=== PATIENT | male | born 1985 | race Two or more races ===

== ENCOUNTER 2024-01-11 12:56 | Inpatient (IN) | payer MEDICAID ==
[~2024-01-11] VITALS: Ht 175.3 cm; Wt 72.3 kg
[2024-01-11] MEDS: CefTRIAXone 2gm/D5W 50ml BAG 50 ML IV ONE (14:52)
[2024-01-11] MEDS: normal saline 1000ML IV soln IV ONE (14:53)
[2024-01-11] MEDS: normal saline 1000ML IV soln IVB ONE (15:03)
[2024-01-11] MEDS: vancomycin/NS 1 GM ADD-VANTAGE 250 ML IV ONE (15:03)
[2024-01-11] MEDS: HYDROmorphone 1 mg/ml syringe IV ONE (15:15)
[2024-01-11 15:18] LABS: BASOPHILS # (AUTO) 0.1 X10'3 (0-0.2); BASOPHILS % (AUTO) 0.4 % (0-1); EOSINOPHILS # (AUTO) 0.4 X10'3 (0-0.9); EOSINOPHILS % (AUTO) 2.7 % (0-6); HEMATOCRIT 40.8 % (42.0-52.0); HEMOGLOBIN 13.7 g/dl (14.0-17.9); LYMPHOCYTES # (AUTO) 0.2 X10'3 (1.1-4.8); LYMPHOCYTES % (AUTO) 1.6 % (21-51); MEAN CORPUSCULAR HEMOGLOBIN 28.2 PG (27.0-31.0); MEAN CORPUSCULAR HGB CONC 33.6 g/dL (33.0-36.5); MEAN CORPUSCULAR VOLUME 83.8 FL (78-98); MEAN PLATELET VOLUME 10.6 FL (7.4-10.4); MONOCYTES # (AUTO) 0.4 X10'3 (0-0.9); MONOCYTES % (AUTO) 3.2 % (2-12); NEUTROPHILS # (AUTO) 12.3 X10'3 (1.8-7.7); NEUTROPHILS % (AUTO) 92.1 % (42-75); PLATELET COUNT 112 X10'3 (140-440); RED BLOOD COUNT 4.86 X10'6 (4.70-6.10); WHITE BLOOD COUNT 13.4 X10'3 (4.5-11.0)
[2024-01-11 15:20] LABS: ALBUMIN 1.8 G/DL (3.4-5.0); ANION GAP 11 (8-16); BLOOD UREA NITROGEN 38 MG/DL (7-18); BUN/CREATININE RATIO 31.1 (10.0-20.0); CALCIUM 8.1 MG/DL (8.5-10.1); CHLORIDE 98 MMOL/L (99-107); CREATININE 1.22 MG/DL (0.60-1.10); GLUCOSE 358 MG/DL (70-104); MAGNESIUM 1.6 MG/DL (1.5-2.4); POTASSIUM 4.6 MMOL/L (3.5-5.1); SODIUM 130 MMOL/L (135-145); TOTAL CARBON DIOXIDE 20.8 MMOL/L (24-32); eCRCL 82 ML/MIN; eGFR 66 ML/MIN
[2024-01-11 15:49] LABS: NUCLEATED RED BLOOD CELLS 1 /100WBC (0-0); TOTAL CELLS COUNTED 100
[2024-01-11 15:50] LABS: BURR CELLS FEW; PLATELET ESTIMATE DECREASED
[2024-01-11] MEDS ORDERED: meperidine/PF 25mg/ml syringe IV PRN ×3 (16:15)
[2024-01-11] MEDS ORDERED: labetalol 20mg/4ml (5mg/ml) syringe IV PRN (16:15)
[2024-01-11] MEDS ORDERED: proCHLORperazine 10 MG/2 ml inj IV PRN (16:15)
[2024-01-11] MEDS ORDERED: morphine 4 MG/ML inj SYRINge IV PRN (16:15)
[2024-01-11] MEDS ORDERED: enalaprilat dihydrate 2.5mg/2ml vial IV PRN (16:15)
[2024-01-11] MEDS ORDERED: ringers solution, lacted 1,000 ML IV SCH (16:15)
[2024-01-11] MEDS ORDERED: morphine 2 MG/ML inj. syringe IV PRN (16:15)
[2024-01-11] MEDS ORDERED: ondansetron/PF 4mg/2ml inj IV PRN ×2 (16:15→18:10)
[2024-01-11] MEDS: ringers solution, lactated 500ml IV solution IV ONE (17:21)
[2024-01-11] MEDS: ringers solution, lacted 1,000 ML IV ONE ×2 (17:52)
[2024-01-11 17:59] LABS: APTT 37 SECONDS (22-32); INR 1.1 INR
[2024-01-11] MEDS ORDERED: magnesium hydroxide 30ml (MOM) UD suspension PO PRN (18:10)
[2024-01-11] MEDS ORDERED: acetaminophen 325mg tablet PO PRN ×2 (18:10)
[2024-01-11] MEDS ORDERED: DEXTROSE 15 GM of carb/4 tabs (each vial/BOTTLE has 4 tablets) PO PRN (18:35)
[2024-01-11] MEDS ORDERED: dextrose 50%-water 50ml dispensing syringe IV PRN ×3 (18:35→19:30)
[2024-01-11] MEDS ORDERED: glucagon, human recombinant 1mg kit SUBCUT PRN (18:35)
[2024-01-11 18:53] LABS: BILIRUBIN,URINE SMALL (Neg); CLARITY,URINE CLEAR (Clear); COLOR,URINE YELLOW (Yellow); GLUCOSE, URINE >=1000 mg/dl (Neg); KETONES,URINE 15 mg/dl (Neg); LEUKOCYTE ESTERASE ,URINE NEGATIVE (Neg); NITRITES, URINE NEGATIVE (Neg); OCCULT BLOOD,URINE MODERATE (Neg); PROTEIN,URINE 30 mg/dl (Neg)
[2024-01-11] MEDS: nicotine 14mg patch - 24hr TD ONE (19:00)
[2024-01-11 19:01] LABS: UA COLLECTION TYPE FOLEY CATH
[2024-01-11 19:05] LABS: URINE AMPHETAMINE SCREEN POSITIVE (Neg); URINE BARBITUATE SCREEN NEGATIVE (Neg); URINE BENZODIAZEPINES SCREEN NEGATIVE (Neg); URINE CANNABINOID SCREEN POSITIVE (Neg); URINE COCAINE SCREEN NEGATIVE (Neg); URINE METHADONE SCREEN NEGATIVE (Neg); URINE OPIATE SCREEN NEGATIVE (Neg); URINE PHENCYCLIDINE SCREEN NEGATIVE (Neg)
[2024-01-11 19:16] LABS: HEMOGLOBIN A1C > 12.0 % (4.5-6.2)
[2024-01-11] MEDS: normal saline 1000ml 1,000 ML IV ONE (19:26)
[2024-01-11] MEDS: ringers solution, lacted 1,000 ML IV SCH (19:26)
[2024-01-11] MEDS: Insulin Reg/NS 100units/100mL 100 ML IV SCH (19:30)
[2024-01-11 20:10] LABS: SQUAMOUS EPITHELIAL CELL,UR FEW /LPF (FEW)
[2024-01-11 20:14] LABS: BACTERIA,URINE FEW /HPF (Neg); WBC,URINE 0-4 /HPF (0-4)
[2024-01-11] MEDS: normal saline 1000ml 1,000 ML IV SCH (20:22)
[2024-01-11] MEDS: insulin regular, human 10 units/0.1 ml syringe SQ ONE (20:50)
[2024-01-11 21:09] VITALS: BP 111/74; PULSE 120; RESP 17; TEMP 96; O2SAT 100
[2024-01-11 22:00] VITALS: BP 118/80; PULSE 121; RESP 16; O2SAT 99
[2024-01-11 23:00] VITALS: BP 106/69; PULSE 123; RESP 15; O2SAT 99
[2024-01-11] MEDS: insulin glargine (Lantus) pen - multi-dose SQ SCH (23:52)
[2024-01-11] MEDS: silver sulfadiazine cream 400gm jar TP SCH (23:53)
[2024-01-11] MEDS: clindamycin 600mg/D5W 50ml 50 ML IV SCH (23:55)
[2024-01-12] VITALS (19 sets, daily range): BP systolic 91–135; BP diastolic 60–86; PULSE 76–132; RESP 13–24; TEMP 97–98.9; O2SAT 94–100
[2024-01-12] MEDS: heparin, porcine 5000 units/ml vial SQ SCH (01:49)
[2024-01-12] MEDS: insulin Lispro (HumaLOG) vial - multi-dose SQ SCH (01:55)
[2024-01-12 03:08] LABS: HEMATOCRIT 39.9 % (42.0-52.0); HEMOGLOBIN 13.3 g/dl (14.0-17.9); MEAN CORPUSCULAR HEMOGLOBIN 27.9 PG (27.0-31.0); MEAN CORPUSCULAR HGB CONC 33.3 g/dL (33.0-36.5); MEAN CORPUSCULAR VOLUME 83.7 FL (78-98); MEAN PLATELET VOLUME 11.1 FL (7.4-10.4); PLATELET COUNT 107 X10'3 (140-440); RED BLOOD COUNT 4.77 X10'6 (4.70-6.10); RED CELL DISTRIBUTION WIDTH 16.5 % (11.5-14.5); WHITE BLOOD COUNT 12.5 X10'3 (4.5-11.0)
[2024-01-12 03:19] LABS: ALANINE AMINOTRANSFERASE 15 U/L (12-78); ALBUMIN 1.5 G/DL (3.4-5.0); ALBUMIN/GLOBULIN RATIO 0.4 (1.1-1.5); ALKALINE PHOSPHATASE 119 IU/L (46-116); ANION GAP 8 (8-16); ASPARTATE AMINO TRANSFERASE 19 U/L (10-37); BILIRUBIN,TOTAL 0.7 MG/DL (0.1-1.0); BLOOD UREA NITROGEN 27 MG/DL (7-18); BUN/CREATININE RATIO 32.9 (10.0-20.0); CALCIUM 7.7 MG/DL (8.5-10.1); CHLORIDE 103 MMOL/L (99-107); CKMB RELATIVE INDEX 0.8 RATIO (0-2.5); CREATINE KINASE 145 U/L (39-308); CREATINE KINASE MB 1.2 ng/ml (0.3-3.6); CREATININE 0.82 MG/DL (0.60-1.10); GLUCOSE 239 MG/DL (70-104); POTASSIUM 3.9 MMOL/L (3.5-5.1); SODIUM 133 MMOL/L (135-145); TOTAL CARBON DIOXIDE 21.9 MMOL/L (24-32); TOTAL PROTEIN 5.5 G/DL (6.4-8.2); eCRCL 122 ML/MIN; eGFR > 90 ML/MIN
[2024-01-12 03:42] LABS: ANISOCYTOSIS 1+; BURR CELLS 1+; ELLIPTOCYTES FEW; LARGE PLATELETS FEW; NUCLEATED RED BLOOD CELLS 1 /100WBC (0-0); PLATELET ESTIMATE DECREASED; TOTAL CELLS COUNTED 100
[2024-01-12 03:43] LABS: TOXIC VACUOLATION 1+
[2024-01-12] MEDS: levoFLOXACIN-Levaquin 750MG/D5 150 ML IV SCH (08:16)
[2024-01-12] MEDS ORDERED: INSULIN LISPRO 100 UNIT/ML INSULN.PEN MULTI-DOSE SQ SCH (09:00)
[2024-01-12] MEDS: ringers solution, lacted 1,000 ML IV ONE ×2 (09:06→10:36)
[2024-01-12 09:38] LABS: ETHANOL < 10 MG/DL (<10); THYROID STIMULATING HORMONE 1.55 ulU/ml (0.34-4.50)
[2024-01-12] MEDS: morphine 2 MG/ML inj. syringe IV PRN (15:38)
[2024-01-13] MEDS: morphine 4 MG/ML inj SYRINge IV PRN (02:52)
[2024-01-13 06:00] VITALS: BP 134/80; PULSE 76; RESP 16; TEMP 98.3; O2SAT 94
[2024-01-13 06:14] LABS: HEMOGLOBIN 12.1 g/dl (14.0-17.9)
[2024-01-13 06:15] LABS: HEMATOCRIT 36.3 % (42.0-52.0); MEAN CORPUSCULAR HEMOGLOBIN 27.7 PG (27.0-31.0); MEAN CORPUSCULAR HGB CONC 33.3 g/dL (33.0-36.5); MEAN CORPUSCULAR VOLUME 83.4 FL (78-98); MEAN PLATELET VOLUME 10.6 FL (7.4-10.4); PLATELET COUNT 95 X10'3 (140-440); RED BLOOD COUNT 4.35 X10'6 (4.70-6.10); RED CELL DISTRIBUTION WIDTH 16.1 % (11.5-14.5); WHITE BLOOD COUNT 12.6 X10'3 (4.5-11.0)
[2024-01-13 06:24] LABS: ALANINE AMINOTRANSFERASE 18 U/L (12-78); ALBUMIN 1.1 G/DL (3.4-5.0); ALBUMIN/GLOBULIN RATIO 0.3 (1.1-1.5); ALKALINE PHOSPHATASE 141 IU/L (46-116); ANION GAP 9 (8-16); ASPARTATE AMINO TRANSFERASE 23 U/L (10-37); BILIRUBIN,TOTAL 0.5 MG/DL (0.1-1.0); BLOOD UREA NITROGEN 19 MG/DL (7-18); CALCIUM 7.7 MG/DL (8.5-10.1); CHLORIDE 106 MMOL/L (99-107); CREATININE 0.76 MG/DL (0.60-1.10); GLUCOSE 180 MG/DL (70-104); POTASSIUM 3.4 MMOL/L (3.5-5.1); SODIUM 137 MMOL/L (135-145); TOTAL CARBON DIOXIDE 21.6 MMOL/L (24-32); TOTAL PROTEIN 4.9 G/DL (6.4-8.2); eCRCL 132 ML/MIN; eGFR > 90 ML/MIN
[2024-01-13 06:34] LABS: ANISOCYTOSIS 1+; NUCLEATED RED BLOOD CELLS 1 /100WBC (0-0); PLATELET ESTIMATE DECREASED; ROULEAUX 1+; TOTAL CELLS COUNTED 100; TOXIC VACUOLATION 2+
[2024-01-13 06:35] LABS: BURR CELLS 2+; POLYCHROMASIA FEW; SMUDGE CELLS FEW
[2024-01-13 09:11] VITALS: RESP 16
[2024-01-13 10:00] VITALS: BP 111/76; PULSE 108; RESP 16; TEMP 96.9; O2SAT 99
[2024-01-13] MEDS ORDERED: potassium Cl 20 mEq SR tablet PO PRN (10:30)
[2024-01-13] MEDS ORDERED: potassium Cl 40MEQ/1/2NS 520ml 520 ML IV PRN (10:30)
[2024-01-13] MEDS ORDERED: magnesium 2GM in 50ml NS 50 ML IV PRN (10:30)
[2024-01-13] MEDS ORDERED: magnesium 4gm in 100ml NS 100 ML IV PRN (10:30)
[2024-01-13] MEDS ORDERED: magnesium Cl slow-release 64mg tablet PO PRN (10:30)
[2024-01-13] MEDS: potassium Cl 20 mEq SR tablet PO PRN (11:31)
[2024-01-13] MEDS ORDERED: INSU100I31 SQ (14:11)
[2024-01-13] MEDS: HYDROcodone/acetaminophen 5mg/325mg tablet PO PRN (16:13)
[2024-01-13 18:00] VITALS: BP 112/73; PULSE 107; RESP 17; TEMP 97.2; O2SAT 98
[2024-01-13 20:00] VITALS: RESP 18; O2SAT 98
[2024-01-13] MEDS: K and/or MAG REPLACEMENT MC SCH (20:00)
[2024-01-13 22:00] VITALS: BP 111/77; PULSE 105; RESP 16; TEMP 98.6; O2SAT 100
[2024-01-14] VITALS (7 sets, daily range): BP systolic 108–124; BP diastolic 72–80; PULSE 105–114; RESP 16–20; TEMP 97.3–98.9; O2SAT 95–100
[2024-01-14 05:58] LABS: ALANINE AMINOTRANSFERASE 25 U/L (12-78); ALBUMIN 1.1 G/DL (3.4-5.0); ALBUMIN/GLOBULIN RATIO 0.3 (1.1-1.5); ALKALINE PHOSPHATASE 200 IU/L (46-116); ANION GAP 11 (8-16); ASPARTATE AMINO TRANSFERASE 29 U/L (10-37); BILIRUBIN,TOTAL 0.5 MG/DL (0.1-1.0); BLOOD UREA NITROGEN 20 MG/DL (7-18); BUN/CREATININE RATIO 32.3 (10.0-20.0); CALCIUM 7.5 MG/DL (8.5-10.1); CHLORIDE 105 MMOL/L (99-107); CREATININE 0.62 MG/DL (0.60-1.10); GLUCOSE 206 MG/DL (70-104); POTASSIUM 4.1 MMOL/L (3.5-5.1); SODIUM 137 MMOL/L (135-145); TOTAL CARBON DIOXIDE 20.6 MMOL/L (24-32); eCRCL 162 ML/MIN; eGFR > 90 ML/MIN
[2024-01-14 05:59] LABS: BASOPHILS % (AUTO) 0.2 % (0-1); EOSINOPHILS # (AUTO) 0.2 X10'3 (0-0.9); HEMATOCRIT 35.3 % (42.0-52.0); HEMOGLOBIN 11.8 g/dl (14.0-17.9); LYMPHOCYTES # (AUTO) 0.4 X10'3 (1.1-4.8); LYMPHOCYTES % (AUTO) 2.7 % (21-51); MEAN CORPUSCULAR HEMOGLOBIN 27.6 PG (27.0-31.0); MEAN CORPUSCULAR HGB CONC 33.4 g/dL (33.0-36.5); MEAN CORPUSCULAR VOLUME 82.6 FL (78-98); MEAN PLATELET VOLUME 10.1 FL (7.4-10.4); MONOCYTES # (AUTO) 0.5 X10'3 (0-0.9); MONOCYTES % (AUTO) 3.1 % (2-12); NEUTROPHILS # (AUTO) 14.9 X10'3 (1.8-7.7); PLATELET COUNT 82 X10'3 (140-440); RED BLOOD COUNT 4.28 X10'6 (4.70-6.10)
[2024-01-14 06:59] LABS: ANISOCYTOSIS 1+; MICROCYTOSIS 1+; PLATELET ESTIMATE DECREASED; POIKILOCYTOSIS FEW
[2024-01-14] MEDS: insulin glargine (Lantus) pen - multi-dose SQ SCH (09:52)
[2024-01-14] MEDS: LORazepam 2 mg/ml vial IV PRN (22:16)
[2024-01-15 06:51] VITALS: BP 120/83; PULSE 112; RESP 18; TEMP 97.5; O2SAT 100
[2024-01-15 06:51] LABS: BASOPHILS # (AUTO) 0.1 X10'3 (0-0.2); BASOPHILS % (AUTO) 0.5 % (0-1); EOSINOPHILS # (AUTO) 0.2 X10'3 (0-0.9); EOSINOPHILS % (AUTO) 1.3 % (0-6); HEMATOCRIT 34.7 % (42.0-52.0); HEMOGLOBIN 11.7 g/dl (14.0-17.9); LYMPHOCYTES # (AUTO) 0.7 X10'3 (1.1-4.8); LYMPHOCYTES % (AUTO) 4.3 % (21-51); MEAN CORPUSCULAR HEMOGLOBIN 27.9 PG (27.0-31.0); MEAN CORPUSCULAR HGB CONC 33.8 g/dL (33.0-36.5); MEAN CORPUSCULAR VOLUME 82.3 FL (78-98); MEAN PLATELET VOLUME 10.2 FL (7.4-10.4); MONOCYTES # (AUTO) 0.5 X10'3 (0-0.9); MONOCYTES % (AUTO) 3.2 % (2-12); NEUTROPHILS # (AUTO) 15.4 X10'3 (1.8-7.7); NEUTROPHILS % (AUTO) 90.7 % (42-75); PLATELET COUNT 97 X10'3 (140-440); RED BLOOD COUNT 4.21 X10'6 (4.70-6.10); RED CELL DISTRIBUTION WIDTH 16.6 % (11.5-14.5)
[2024-01-15 07:03] LABS: ALANINE AMINOTRANSFERASE 19 U/L (12-78); ALBUMIN 1.1 G/DL (3.4-5.0); ALBUMIN/GLOBULIN RATIO 0.3 (1.1-1.5); ALKALINE PHOSPHATASE 204 IU/L (46-116); ANION GAP 9 (8-16); ASPARTATE AMINO TRANSFERASE 19 U/L (10-37); BILIRUBIN,TOTAL 0.5 MG/DL (0.1-1.0); BLOOD UREA NITROGEN 14 MG/DL (7-18); BUN/CREATININE RATIO 26.4 (10.0-20.0); CALCIUM 7.5 MG/DL (8.5-10.1); CHLORIDE 103 MMOL/L (99-107); CREATININE 0.53 MG/DL (0.60-1.10); GLUCOSE 139 MG/DL (70-104); POTASSIUM 3.8 MMOL/L (3.5-5.1); SODIUM 135 MMOL/L (135-145); TOTAL CARBON DIOXIDE 22.8 MMOL/L (24-32); TOTAL PROTEIN 5.1 G/DL (6.4-8.2); eCRCL 189 ML/MIN; eGFR > 90 ML/MIN
[2024-01-15 08:37] LABS: TOTAL CELLS COUNTED 100
[2024-01-15 08:39] LABS: ACANTHOCYTES FEW; ANISOCYTOSIS 1+; BURR CELLS 1+; ELLIPTOCYTES FEW; PLATELET ESTIMATE DECREASED; POLYCHROMASIA FEW; TEAR DROP CELLS FEW
[2024-01-15 09:30] VITALS: RESP 14; O2SAT 96
[2024-01-15 11:00] VITALS: BP 121/81; PULSE 62; RESP 15; TEMP 98.4; O2SAT 100
[2024-01-15 18:00] VITALS: BP 128/77; PULSE 107; RESP 14; TEMP 98.1; O2SAT 99
[2024-01-15] MEDS: JUVEN Smoothie Arginine/Glut./Ca2+Bmb (Juven 19.3pkt) 240ml cup PO SCH (18:00)
[2024-01-15 19:11] VITALS: RESP 14; O2SAT 99
[2024-01-15 22:16] VITALS: BP 110/75; PULSE 109; RESP 20; TEMP 98.2; O2SAT 98
[2024-01-16 06:26] LABS: BASOPHILS # (AUTO) 0.1 X10'3 (0-0.2); BASOPHILS % (AUTO) 0.5 % (0-1); EOSINOPHILS # (AUTO) 0.2 X10'3 (0-0.9); EOSINOPHILS % (AUTO) 1.1 % (0-6); HEMATOCRIT 34.6 % (42.0-52.0); HEMOGLOBIN 11.5 g/dl (14.0-17.9); LYMPHOCYTES # (AUTO) 0.8 X10'3 (1.1-4.8); MEAN CORPUSCULAR HEMOGLOBIN 27.1 PG (27.0-31.0); MEAN CORPUSCULAR HGB CONC 33.2 g/dL (33.0-36.5); MEAN CORPUSCULAR VOLUME 81.7 FL (78-98); MEAN PLATELET VOLUME 9.7 FL (7.4-10.4); MONOCYTES # (AUTO) 0.7 X10'3 (0-0.9); MONOCYTES % (AUTO) 3.9 % (2-12); NEUTROPHILS % (AUTO) 89.5 % (42-75); PLATELET COUNT 113 X10'3 (140-440); RED BLOOD COUNT 4.24 X10'6 (4.70-6.10); RED CELL DISTRIBUTION WIDTH 16.1 % (11.5-14.5); WHITE BLOOD COUNT 16.7 X10'3 (4.5-11.0)
[2024-01-16 06:29] VITALS: BP 119/81; PULSE 104; RESP 18; TEMP 97.1; O2SAT 100
[2024-01-16 06:44] LABS: ALANINE AMINOTRANSFERASE 14 U/L (12-78); ALBUMIN/GLOBULIN RATIO 0.3 (1.1-1.5); ALKALINE PHOSPHATASE 184 IU/L (46-116); ANION GAP 6 (8-16); ASPARTATE AMINO TRANSFERASE 13 U/L (10-37); BILIRUBIN,TOTAL 0.4 MG/DL (0.1-1.0); BLOOD UREA NITROGEN 11 MG/DL (7-18); CALCIUM 7.1 MG/DL (8.5-10.1); CHLORIDE 101 MMOL/L (99-107); CREATININE 0.55 MG/DL (0.60-1.10); GLUCOSE 178 MG/DL (70-104); POTASSIUM 3.8 MMOL/L (3.5-5.1); SODIUM 131 MMOL/L (135-145); TOTAL CARBON DIOXIDE 23.8 MMOL/L (24-32); TOTAL PROTEIN 4.9 G/DL (6.4-8.2); eCRCL 182 ML/MIN; eGFR > 90 ML/MIN
[2024-01-16 10:00] VITALS: BP 107/68; PULSE 105; RESP 20; TEMP 97.4; O2SAT 98
[2024-01-16] MEDS: lactose-reduced food (Ensure High Protein) 237ml bottle PO SCH (12:31)
[2024-01-16] MEDS: HYDROmorphone 1 mg/ml syringe IV PRN (14:25)
[2024-01-16 18:00] VITALS: BP 128/81; PULSE 103; RESP 18; TEMP 98.1; O2SAT 99
[2024-01-16 20:00] VITALS: RESP 16; O2SAT 99
[2024-01-16 22:00] VITALS: BP 119/78; PULSE 118; RESP 16; TEMP 97.7; O2SAT 99
[2024-01-17] MEDS: LORazepam 1 MG tablet PO PRN (01:17)
[2024-01-17 06:00] VITALS: BP 116/76; PULSE 109; RESP 16; TEMP 98.7; O2SAT 99
[2024-01-17 06:12] LABS: BASOPHILS # (AUTO) 0.2 X10'3 (0-0.2); EOSINOPHILS # (AUTO) 0.2 X10'3 (0-0.9); EOSINOPHILS % (AUTO) 1.1 % (0-6); HEMOGLOBIN 11.1 g/dl (14.0-17.9); LYMPHOCYTES % (AUTO) 6.6 % (21-51); MEAN CORPUSCULAR HEMOGLOBIN 27.6 PG (27.0-31.0); MEAN CORPUSCULAR HGB CONC 33.7 g/dL (33.0-36.5); MEAN CORPUSCULAR VOLUME 81.9 FL (78-98); MEAN PLATELET VOLUME 8.6 FL (7.4-10.4); MONOCYTES # (AUTO) 0.5 X10'3 (0-0.9); MONOCYTES % (AUTO) 3.4 % (2-12); NEUTROPHILS # (AUTO) 13.8 X10'3 (1.8-7.7); NEUTROPHILS % (AUTO) 87.9 % (42-75); PLATELET COUNT 157 X10'3 (140-440); RED BLOOD COUNT 4.03 X10'6 (4.70-6.10); RED CELL DISTRIBUTION WIDTH 16.1 % (11.5-14.5); WHITE BLOOD COUNT 15.7 X10'3 (4.5-11.0)
[2024-01-17 06:33] LABS: ALANINE AMINOTRANSFERASE 15 U/L (12-78); ALBUMIN/GLOBULIN RATIO 0.3 (1.1-1.5); ALKALINE PHOSPHATASE 178 IU/L (46-116); ANION GAP 2 (8-16); ASPARTATE AMINO TRANSFERASE 17 U/L (10-37); BILIRUBIN,TOTAL 0.5 MG/DL (0.1-1.0); BLOOD UREA NITROGEN 13 MG/DL (7-18); BUN/CREATININE RATIO 19.7 (10.0-20.0); CALCIUM 6.8 MG/DL (8.5-10.1); CHLORIDE 99 MMOL/L (99-107); CREATININE 0.66 MG/DL (0.60-1.10); GLUCOSE 223 MG/DL (70-104); SODIUM 131 MMOL/L (135-145); TOTAL CARBON DIOXIDE 29.8 MMOL/L (24-32); TOTAL PROTEIN 4.9 G/DL (6.4-8.2); eCRCL 152 ML/MIN; eGFR > 90 ML/MIN
[2024-01-17 06:52] LABS: TOTAL CELLS COUNTED 100
[2024-01-17 06:55] LABS: BURR CELLS FEW; PLATELET ESTIMATE NORMAL
[2024-01-17 06:57] LABS: ANISOCYTOSIS 1+; ELLIPTOCYTES FEW
[2024-01-17 06:58] LABS: LARGE PLATELETS FEW
[2024-01-17 06:59] LABS: SCHISTOCYTES FEW
[2024-01-17 07:00] LABS: POLYCHROMASIA FEW
[2024-01-17 07:04] LABS: GIANT PLATELET FEW
[2024-01-17 18:00] VITALS: BP 127/79; PULSE 111; RESP 16; TEMP 97.4; O2SAT 99
[2024-01-17 20:00] VITALS: RESP 20; O2SAT 94
[2024-01-17] MEDS: DEXTROSE 15 GM of carb/4 tabs (each vial/BOTTLE has 4 tablets) PO PRN (21:41)
[2024-01-17 22:00] VITALS: BP 106/66; PULSE 106; RESP 14; TEMP 97.9; O2SAT 98
[2024-01-18 06:00] VITALS: BP 125/66; PULSE 111; RESP 14; TEMP 97.5; O2SAT 98
[2024-01-18 07:15] LABS: EOSINOPHILS # (AUTO) 0.2 X10'3 (0-0.9); HEMOGLOBIN 11.4 g/dl (14.0-17.9); MEAN PLATELET VOLUME 8.6 FL (7.4-10.4); MONOCYTES # (AUTO) 0.7 X10'3 (0-0.9); MONOCYTES % (AUTO) 4.3 % (2-12); PLATELET COUNT 192 X10'3 (140-440)
[2024-01-18 07:18] LABS: BASOPHILS # (AUTO) 0.2 X10'3 (0-0.2); BASOPHILS % (AUTO) 1.1 % (0-1); HEMATOCRIT 34.4 % (42.0-52.0); LYMPHOCYTES % (AUTO) 5.6 % (21-51); MEAN CORPUSCULAR HEMOGLOBIN 27.5 PG (27.0-31.0); MEAN CORPUSCULAR HGB CONC 33.1 g/dL (33.0-36.5); MEAN CORPUSCULAR VOLUME 82.8 FL (78-98); RED BLOOD COUNT 4.15 X10'6 (4.70-6.10); RED CELL DISTRIBUTION WIDTH 16.2 % (11.5-14.5)
[2024-01-18 07:38] LABS: ALANINE AMINOTRANSFERASE 13 U/L (12-78); ALBUMIN/GLOBULIN RATIO 0.2 (1.1-1.5); ALKALINE PHOSPHATASE 171 IU/L (46-116); ANION GAP 3 (8-16); ASPARTATE AMINO TRANSFERASE 15 U/L (10-37); BILIRUBIN,TOTAL 0.6 MG/DL (0.1-1.0); BLOOD UREA NITROGEN 12 MG/DL (7-18); CHLORIDE 96 MMOL/L (99-107); CREATININE 0.63 MG/DL (0.60-1.10); GLUCOSE 256 MG/DL (70-104); POTASSIUM 4.1 MMOL/L (3.5-5.1); SODIUM 128 MMOL/L (135-145); TOTAL CARBON DIOXIDE 29.5 MMOL/L (24-32); TOTAL PROTEIN 5.2 G/DL (6.4-8.2); eCRCL 159 ML/MIN; eGFR > 90 ML/MIN
[2024-01-18 10:00] VITALS: BP 126/77; PULSE 108; RESP 18; TEMP 97.9; O2SAT 100
[2024-01-18 12:46] VITALS: BP 103/65; PULSE 112
[2024-01-18] MEDS ORDERED: HYDR-3964 PO (14:20)
[2024-01-18] MEDS ORDERED: SILV20CR13 TP (14:20)
[2024-01-18] MEDS ORDERED: ACET-1008 PO (14:20)
[2024-01-18 14:53] VITALS: RESP 18
== END 2024-01-18 16:53 | disposition home or self-care (01) | DRG 720 ==
LOC: ER 12:56 → ED HOLD 18:10 → CICU 2S 21:51 → SUR 3N 01-12 15:19
PROVIDERS: ADMIT Internal Medicine Critical Care Medicine; ATTEND Internal Medicine Critical Care Medicine
DX: A41.9 Sepsis, unspecified organism (principal); N17.0 Acute kidney failure with tubular necrosis; R65.21 Severe sepsis with septic shock; E87.1 Hypo-osmolality and hyponatremia; L03.116 Cellulitis of left lower limb; E11.65 Type 2 diabetes mellitus with hyperglycemia; Z59.00 Homelessness unspecified; F15.90 Other stimulant use, unspecified, uncomplicated; T24.112A Burn of first degree of left thigh, initial encounter; X08.8XXA Exposure to other specified smoke, fire and flames, initial encounter; Z89.421 Acquired absence of other right toe(s); Y93.89 Activity, other specified; Y92.89 Other specified places as the place of occurrence of the external cause; Y99.8 Other external cause status; Z87.891 Personal history of nicotine dependence
CPT/HCPCS: 36415; 71045; 80048; 80053; 80305; 80320; 81001; 82550; 82553; 82948; 83036; 83605; 83735; 83874; 84145; 84443; 85007; 85008; 85025; 85610; 85730; 87040; 93005; 93306; 93971; 96365; 96366; 96368; 96375; 97116; 97161; 97530; 99291; 99292; A4314; A6196; A6212; A6213; A6253; A6258; A6402; A6449; G0378; J0696; J1170; J1644; J1815; J1956; J2060; J2270; J3370; J3490; J7030; J7040; J7120

== ENCOUNTER 2024-09-07 12:49 | Emergency (ER) | payer MEDICAID ==
[~2024-09-07] VITALS: Ht 175.3 cm; Wt 88.9 kg
[~2024-09-07 12:49] MED LIST: ACET-1008 PO; HYDR-3964 PO; INSU100I31 SQ; SILV20CR13 TP
[2024-09-07 16:05] LABS: ALANINE AMINOTRANSFERASE 12 U/L (12-78); ALBUMIN 2.7 G/DL (3.4-5.0); ALBUMIN/GLOBULIN RATIO 0.5 (1.1-1.5); ALKALINE PHOSPHATASE 134 IU/L (46-116); ANION GAP 4 (8-16); ASPARTATE AMINO TRANSFERASE 12 U/L (10-37); BILIRUBIN,TOTAL 0.5 MG/DL (0.1-1.0); BLOOD UREA NITROGEN 23 MG/DL (7-18); BUN/CREATININE RATIO 19.7 (10.0-20.0); CALCIUM 8.4 MG/DL (8.5-10.1); CHLORIDE 98 MMOL/L (99-107); CREATININE 1.17 MG/DL (0.60-1.10); POTASSIUM 4.3 MMOL/L (3.5-5.1); SODIUM 130 MMOL/L (135-145); TOTAL CARBON DIOXIDE 28.1 MMOL/L (24-32); TOTAL PROTEIN 8.3 G/DL (6.4-8.2); eCRCL 85 ML/MIN; eGFR 69 ML/MIN
[2024-09-07 16:07] LABS: GLUCOSE 412 MG/DL (70-104)
[2024-09-07 16:20] LABS: BASOPHILS % (AUTO) 0.4 % (0-1); EOSINOPHILS # (AUTO) 0.4 X10'3 (0-0.9); EOSINOPHILS % (AUTO) 6.3 % (0-6); HEMOGLOBIN 11.4 g/dl (14.0-17.9); LYMPHOCYTES # (AUTO) 1.2 X10'3 (1.1-4.8); LYMPHOCYTES % (AUTO) 17.4 % (21-51); MEAN CORPUSCULAR HEMOGLOBIN 28.3 PG (27.0-31.0); MEAN CORPUSCULAR HGB CONC 33.6 g/dL (33.0-36.5); MEAN CORPUSCULAR VOLUME 84.2 FL (78-98); MEAN PLATELET VOLUME 8.9 FL (7.4-10.4); MONOCYTES # (AUTO) 0.4 X10'3 (0-0.9); MONOCYTES % (AUTO) 5.7 % (2-12); NEUTROPHILS # (AUTO) 4.7 X10'3 (1.8-7.7); NEUTROPHILS % (AUTO) 70.2 % (42-75); PLATELET COUNT 189 X10'3 (140-440); RED BLOOD COUNT 4.03 X10'6 (4.70-6.10); RED CELL DISTRIBUTION WIDTH 15.3 % (11.5-14.5); WHITE BLOOD COUNT 6.6 X10'3 (4.5-11.0)
[2024-09-07] MEDS ORDERED: iohexol 300mg/ml 100ml inj. ONE (16:22)
[2024-09-07] MEDS ORDERED: LEVO-65 PO (18:05)
[2024-09-07 18:14] VITALS: BP 130/80; PULSE 93; RESP 17; TEMP 98; O2SAT 100
== END 2024-09-07 18:16 | disposition home or self-care (01) ==
LOC: ER 12:49
DX: T24.222A Burn of second degree of left knee, initial encounter (principal); S91.101A Unspecified open wound of right great toe without damage to nail, initial encounter; E11.40 Type 2 diabetes mellitus with diabetic neuropathy, unspecified; E11.65 Type 2 diabetes mellitus with hyperglycemia; Z59.00 Homelessness unspecified; Z88.8 Allergy status to other drugs, medicaments and biological substances; W19.XXXA Unspecified fall, initial encounter; X15.0XXA Contact with hot stove (kitchen), initial encounter; Y93.89 Activity, other specified; Y92.828 Other wilderness area as the place of occurrence of the external cause; Y99.8 Other external cause status
CPT/HCPCS: 36415; 73630; 73701; 80053; 85025; 87040; 99285; A6222; J7030; Q9967; A6258; A6449

== ENCOUNTER 2024-09-18 11:28 | Inpatient (IN) | payer MEDICAID ==
[~2024-09-18] VITALS: Ht 175.3 cm; Wt 94.5 kg
[~2024-09-18 11:28] MED LIST changes: +LEVO-65 PO
[2024-09-18 12:30] LABS: BASOPHILS # (AUTO) 0.1 X10'3 (0-0.2); BASOPHILS % (AUTO) 0.9 % (0-1); EOSINOPHILS # (AUTO) 0.3 X10'3 (0-0.9); EOSINOPHILS % (AUTO) 4.5 % (0-6); HEMATOCRIT 28.7 % (42.0-52.0); HEMOGLOBIN 9.6 g/dl (14.0-17.9); LYMPHOCYTES # (AUTO) 1.2 X10'3 (1.1-4.8); LYMPHOCYTES % (AUTO) 16.3 % (21-51); MEAN CORPUSCULAR HGB CONC 33.5 g/dL (33.0-36.5); MEAN CORPUSCULAR VOLUME 83.5 FL (78-98); MEAN PLATELET VOLUME 8.3 FL (7.4-10.4); MONOCYTES # (AUTO) 0.3 X10'3 (0-0.9); MONOCYTES % (AUTO) 4.3 % (2-12); NEUTROPHILS # (AUTO) 5.6 X10'3 (1.8-7.7); PLATELET COUNT 333 X10'3 (140-440); RED BLOOD COUNT 3.44 X10'6 (4.70-6.10); RED CELL DISTRIBUTION WIDTH 15.8 % (11.5-14.5); WHITE BLOOD COUNT 7.6 X10'3 (4.5-11.0)
[2024-09-18 12:55] LABS: ALBUMIN 2.2 G/DL (3.4-5.0); ANION GAP 3 (8-16); BLOOD UREA NITROGEN 16 MG/DL (7-18); BUN/CREATININE RATIO 15.8 (10.0-20.0); CALCIUM 8.2 MG/DL (8.5-10.1); CHLORIDE 103 MMOL/L (99-107); CREATININE 1.01 MG/DL (0.60-1.10); GLUCOSE 348 MG/DL (70-104); POTASSIUM 4.7 MMOL/L (3.5-5.1); SODIUM 135 MMOL/L (135-145); eCRCL 98 ML/MIN; eGFR 82 ML/MIN
[2024-09-18] MEDS ORDERED: VANCOMYCIN 1,500MG inj. 1,500 MG in normal saline 500ml IV soln 300 ML IV SCH ×2 (14:20→20:00)
[2024-09-18] MEDS ORDERED: VANCOMYCIN 1,500MG inj. 1,500 MG in normal saline 500ml IV soln 300 ML IV ONE (14:42)
[2024-09-18] MEDS: ciprofloxacin lact 400MG/200ML 200 ML IV SCH (15:21)
[2024-09-18] MEDS ORDERED: ondansetron/PF 4mg/2ml inj IV PRN (16:25)
[2024-09-18] MEDS ORDERED: acetaminophen 325mg tablet PO PRN (16:25)
[2024-09-18] MEDS ORDERED: mag hydrox/Alum hydrox/simeth 30ml oral suspension PO PRN (16:25)
[2024-09-18] MEDS ORDERED: docusate sod 100mg capsule PO PRN (16:25)
[2024-09-18] MEDS ORDERED: magnesium hydroxide 30ml (MOM) UD suspension PO PRN (16:25)
[2024-09-18] MEDS ORDERED: potassium Cl 20 mEq SR tablet PO PRN ×2 (16:25)
[2024-09-18] MEDS ORDERED: potassium Cl 40MEQ/1/2NS 520ml 520 ML IV PRN (16:25)
[2024-09-18] MEDS ORDERED: magnesium sulf-water 4G/100mL 100 ML IV PRN (16:25)
[2024-09-18] MEDS ORDERED: magnesium sulf-water 2g/50mL 50 ML IV PRN (16:25)
[2024-09-18] MEDS ORDERED: magnesium Cl slow-release 64mg tablet PO PRN (16:25)
[2024-09-18] MEDS: CefTRIAXone/D5W-Rocephin 1gm 50 ML IV SCH (16:53)
[2024-09-18] MEDS ORDERED: VANCOMYCIN 1GM 200ML H20 (PEG) 200 ML IV SCH (17:00)
[2024-09-18] MEDS ORDERED: DEXTROSE 15 GM of carb/4 tabs (each vial/BOTTLE has 4 tablets) PO PRN ×2 (17:10)
[2024-09-18] MEDS ORDERED: dextrose 50%-water 50ml dispensing syringe IV PRN ×2 (17:10)
[2024-09-18] MEDS ORDERED: glucagon, human recombinant 1mg kit SUBCUT PRN (17:10)
[2024-09-18 17:12] LABS: HEMOGLOBIN A1C 11.4 % (4.5-6.2)
[2024-09-18] MEDS: metroNIDAZOLE-Flagyl 500mg/NS 100 ML IV SCH (17:27)
[2024-09-18 17:32] LABS: BILIRUBIN,URINE NEGATIVE (Neg); CLARITY,URINE CLEAR (Clear); COLOR,URINE YELLOW (Yellow); GLUCOSE, URINE >=1000 mg/dl (Neg); KETONES,URINE NEGATIVE (Neg); LEUKOCYTE ESTERASE ,URINE NEGATIVE (Neg); NITRITES, URINE NEGATIVE (Neg); OCCULT BLOOD,URINE TRACE-INTACT (Neg); PH,URINE 6.5 (4.8-8.0); PROTEIN,URINE 100 mg/dl (Neg)
[2024-09-18 17:45] LABS: UA COLLECTION TYPE VOIDED
[2024-09-18 17:46] LABS: BACTERIA,URINE NONE SEEN /HPF (Neg); SPERM FEW /HPF (NEGATIVE); SQUAMOUS EPITHELIAL CELL,UR NONE SEEN /LPF (FEW); WBC,URINE 0-4 /HPF (0-4)
[2024-09-18] MEDS ORDERED: THIA100T66 PO (18:18)
[2024-09-18] MEDS ORDERED: BUSP10TA3 PO (18:18)
[2024-09-18] MEDS ORDERED: LANTUS SQ (18:18)
[2024-09-18] MEDS ORDERED: NOVLG SUBCUT (18:18)
[2024-09-18] MEDS ORDERED: BUPR450T5 PO (18:18)
[2024-09-18] MEDS ORDERED: FERR-39 PO (18:18)
[2024-09-18] MEDS ORDERED: [UNRECOGNIZED DRUG - CODE] PO (18:18)
[2024-09-18] MEDS ORDERED: ATOR20TA66 PO (18:18)
[2024-09-18] MEDS ORDERED: GABA-1555 PO (18:18)
[2024-09-18] MEDS ORDERED: LISI5TAB22 PO (18:18)
[2024-09-18] MEDS: VANCOMYCIN 1,500MG inj. 1,500 MG in normal saline 500ml IV soln 300 ML IV ONE (18:53)
[2024-09-18 19:55] VITALS: BP 121/82; PULSE 70; RESP 18; TEMP 97.8; O2SAT 100
[2024-09-18] MEDS: K and/or MAG REPLACEMENT MC SCH (20:00)
[2024-09-18] MEDS ORDERED: ciprofloxacin lact 400MG/200ML 200 ML IV SCH (20:00)
[2024-09-18 22:00] VITALS: BP 125/83; PULSE 77; RESP 16; TEMP 96.7; O2SAT 100
[2024-09-18] MEDS: gabapentin 300mg capsule PO SCH (23:45)
[2024-09-18] MEDS: HYDROcodone/acetaminophen 5mg/325mg tablet PO PRN (23:47)
[2024-09-19] VITALS (7 sets, daily range): BP systolic 117–127; BP diastolic 83–88; PULSE 70–87; RESP 13–16; TEMP 97.3–98.3; O2SAT 99–100
[2024-09-19] MEDS: VANCOMYCIN 1GM 200ML H20 (PEG) 200 ML IV SCH (02:34)
[2024-09-19 06:16] LABS: BASOPHILS % (AUTO) 0.6 % (0-1); EOSINOPHILS # (AUTO) 0.5 X10'3 (0-0.9); EOSINOPHILS % (AUTO) 6.9 % (0-6); HEMATOCRIT 25.3 % (42.0-52.0); HEMOGLOBIN 8.6 g/dl (14.0-17.9); LYMPHOCYTES # (AUTO) 1.5 X10'3 (1.1-4.8); LYMPHOCYTES % (AUTO) 20.3 % (21-51); MEAN CORPUSCULAR HGB CONC 33.9 g/dL (33.0-36.5); MEAN CORPUSCULAR VOLUME 82.5 FL (78-98); MEAN PLATELET VOLUME 7.8 FL (7.4-10.4); MONOCYTES # (AUTO) 0.4 X10'3 (0-0.9); MONOCYTES % (AUTO) 5.4 % (2-12); NEUTROPHILS # (AUTO) 4.8 X10'3 (1.8-7.7); NEUTROPHILS % (AUTO) 66.8 % (42-75); PLATELET COUNT 248 X10'3 (140-440); RED BLOOD COUNT 3.06 X10'6 (4.70-6.10); RED CELL DISTRIBUTION WIDTH 15.5 % (11.5-14.5); WHITE BLOOD COUNT 7.2 X10'3 (4.5-11.0)
[2024-09-19 06:21] LABS: ALANINE AMINOTRANSFERASE 17 U/L (12-78); ALBUMIN 1.8 G/DL (3.4-5.0); ALBUMIN/GLOBULIN RATIO 0.4 (1.1-1.5); ALKALINE PHOSPHATASE 147 IU/L (46-116); ANION GAP 5 (8-16); ASPARTATE AMINO TRANSFERASE 11 U/L (10-37); BILIRUBIN,TOTAL 0.2 MG/DL (0.1-1.0); BLOOD UREA NITROGEN 15 MG/DL (7-18); BUN/CREATININE RATIO 17.9 (10.0-20.0); CHLORIDE 106 MMOL/L (99-107); CHOL/HDL RATIO 1.5 (0.00-4.99); CHOLESTEROL 65 MG/DL (0-200); CREATININE 0.84 MG/DL (0.60-1.10); GLUCOSE 248 MG/DL (70-104); HDL CHOLESTEROL 43 MG/DL (35-60); LDL CHOLESTEROL 25 MG/DL (50-100); MAGNESIUM 1.7 MG/DL (1.5-2.4); POTASSIUM 4.2 MMOL/L (3.5-5.1); SODIUM 138 MMOL/L (135-145); TOTAL CARBON DIOXIDE 27.5 MMOL/L (24-32); TOTAL PROTEIN 6.7 G/DL (6.4-8.2); TRIGLYCERIDES 37 MG/DL (20-135); eCRCL 118 ML/MIN; eGFR > 90 ML/MIN
[2024-09-19] MEDS ORDERED: dextrose 50%-water 50ml dispensing syringe IV PRN ×2 (08:35)
[2024-09-19] MEDS ORDERED: glucagon, human recombinant 1mg kit SUBCUT PRN (08:35)
[2024-09-19] MEDS ORDERED: DEXTROSE 15 GM of carb/4 tabs (each vial/BOTTLE has 4 tablets) PO PRN ×2 (08:35)
[2024-09-19] MEDS: enoxaparin 40mg/0.4ml syringe SUBCUT SCH (08:46)
[2024-09-19] MEDS ORDERED: GADOTERATE MEGLUMINE 7.5 MMOL/15 ML VIAL IV ONE (11:42)
[2024-09-19] MEDS: INSULIN LISPRO 100 UNIT/ML INSULN.PEN MULTI-DOSE SQ SCH ×2 (12:35)
[2024-09-19] MEDS: ferrous sulfate 325mg tablet PO SCH (16:41)
[2024-09-19] MEDS: VANCOMYCIN LEVEL IV ONE ×2 (17:24→17:37)
[2024-09-19] MEDS: JUVEN Shake w/Arg/Glut/Ca2+Bmb (Juven 19.3gm) pkt 240ml PO SCH (17:38)
[2024-09-19] MEDS: VANCOMYCIN/WATER FOR INJ (PEG) 750MG/150 ML IVPB IV SCH (18:01)
[2024-09-19] MEDS: busPIRone 5mg tablet PO SCH (20:16)
[2024-09-19] MEDS: insulin glargine (Lantus) pen - multi-dose SQ SCH (20:21)
[2024-09-20] VITALS (7 sets, daily range): BP systolic 120–140; BP diastolic 79–90; PULSE 72–87; RESP 14–19; TEMP 97.4–98.3; O2SAT 96–100
[2024-09-20 06:10] LABS: BASOPHILS # (AUTO) 0.1 X10'3 (0-0.2); BASOPHILS % (AUTO) 0.8 % (0-1); EOSINOPHILS # (AUTO) 0.5 X10'3 (0-0.9); EOSINOPHILS % (AUTO) 5.9 % (0-6); HEMATOCRIT 27.6 % (42.0-52.0); HEMOGLOBIN 9.2 g/dl (14.0-17.9); LYMPHOCYTES # (AUTO) 1.5 X10'3 (1.1-4.8); LYMPHOCYTES % (AUTO) 18.2 % (21-51); MEAN CORPUSCULAR HEMOGLOBIN 27.7 PG (27.0-31.0); MEAN CORPUSCULAR HGB CONC 33.3 g/dL (33.0-36.5); MEAN CORPUSCULAR VOLUME 83.4 FL (78-98); MEAN PLATELET VOLUME 7.8 FL (7.4-10.4); MONOCYTES # (AUTO) 0.4 X10'3 (0-0.9); MONOCYTES % (AUTO) 4.7 % (2-12); NEUTROPHILS # (AUTO) 5.7 X10'3 (1.8-7.7); NEUTROPHILS % (AUTO) 70.4 % (42-75); PLATELET COUNT 285 X10'3 (140-440); RED BLOOD COUNT 3.31 X10'6 (4.70-6.10); RED CELL DISTRIBUTION WIDTH 15.9 % (11.5-14.5)
[2024-09-20 07:21] LABS: ALANINE AMINOTRANSFERASE 15 U/L (12-78); ALBUMIN 1.8 G/DL (3.4-5.0); ALBUMIN/GLOBULIN RATIO 0.4 (1.1-1.5); ALKALINE PHOSPHATASE 145 IU/L (46-116); ANION GAP 5 (8-16); ASPARTATE AMINO TRANSFERASE 12 U/L (10-37); BILIRUBIN,TOTAL 0.2 MG/DL (0.1-1.0); BLOOD UREA NITROGEN 22 MG/DL (7-18); BUN/CREATININE RATIO 25.9 (10.0-20.0); CALCIUM 8.4 MG/DL (8.5-10.1); CHLORIDE 104 MMOL/L (99-107); CREATININE 0.85 MG/DL (0.60-1.10); GLUCOSE 241 MG/DL (70-104); MAGNESIUM 1.6 MG/DL (1.5-2.4); POTASSIUM 5.1 MMOL/L (3.5-5.1); SODIUM 137 MMOL/L (135-145); TOTAL CARBON DIOXIDE 27.6 MMOL/L (24-32); TOTAL PROTEIN 6.9 G/DL (6.4-8.2); eCRCL 117 ML/MIN; eGFR > 90 ML/MIN
[2024-09-20] MEDS: lisinopril 5mg tablet PO SCH (08:18)
[2024-09-20] MEDS: BUPROPION HCL 150MG XL 24 HR 150 MG TAB PO SCH (08:19)
[2024-09-20] MEDS: atorvastatin 20mg tablet PO SCH (08:19)
[2024-09-20] MEDS: thiamine 100mg tablet PO SCH (08:20)
[2024-09-20] MEDS: metroNIDAZOLE 500mg tablet PO SCH (12:28)
[2024-09-20] MEDS: VANCOMYCIN LEVEL IV ONE (18:28)
[2024-09-21 06:00] VITALS: BP 124/82; PULSE 89; RESP 16; TEMP 98.8; O2SAT 100
[2024-09-21 07:11] LABS: BASOPHILS # (AUTO) 0.1 X10'3 (0-0.2); BASOPHILS % (AUTO) 0.6 % (0-1); EOSINOPHILS # (AUTO) 0.5 X10'3 (0-0.9); EOSINOPHILS % (AUTO) 5.6 % (0-6); HEMATOCRIT 27.8 % (42.0-52.0); HEMOGLOBIN 9.4 g/dl (14.0-17.9); LYMPHOCYTES # (AUTO) 1.8 X10'3 (1.1-4.8); LYMPHOCYTES % (AUTO) 19.7 % (21-51); MEAN CORPUSCULAR HEMOGLOBIN 27.9 PG (27.0-31.0); MEAN CORPUSCULAR HGB CONC 33.8 g/dL (33.0-36.5); MEAN CORPUSCULAR VOLUME 82.6 FL (78-98); MEAN PLATELET VOLUME 7.5 FL (7.4-10.4); MONOCYTES # (AUTO) 0.5 X10'3 (0-0.9); MONOCYTES % (AUTO) 5.6 % (2-12); NEUTROPHILS # (AUTO) 6.3 X10'3 (1.8-7.7); NEUTROPHILS % (AUTO) 68.5 % (42-75); PLATELET COUNT 275 X10'3 (140-440); RED BLOOD COUNT 3.37 X10'6 (4.70-6.10); RED CELL DISTRIBUTION WIDTH 15.6 % (11.5-14.5); WHITE BLOOD COUNT 9.2 X10'3 (4.5-11.0)
[2024-09-21] MEDS: CefTRIAXone 2gm/D5W 50ml BAG 50 ML IV SCH (07:37)
[2024-09-21 07:39] LABS: ALANINE AMINOTRANSFERASE 19 U/L (12-78); ALBUMIN 1.9 G/DL (3.4-5.0); ALBUMIN/GLOBULIN RATIO 0.4 (1.1-1.5); ALKALINE PHOSPHATASE 138 IU/L (46-116); ANION GAP 5 (8-16); ASPARTATE AMINO TRANSFERASE 13 U/L (10-37); BILIRUBIN,TOTAL 0.3 MG/DL (0.1-1.0); BLOOD UREA NITROGEN 28 MG/DL (7-18); BUN/CREATININE RATIO 31.5 (10.0-20.0); CALCIUM 8.7 MG/DL (8.5-10.1); CHLORIDE 105 MMOL/L (99-107); CREATININE 0.89 MG/DL (0.60-1.10); GLUCOSE 186 MG/DL (70-104); MAGNESIUM 1.7 MG/DL (1.5-2.4); POTASSIUM 5.2 MMOL/L (3.5-5.1); SODIUM 136 MMOL/L (135-145); TOTAL CARBON DIOXIDE 26.3 MMOL/L (24-32); TOTAL PROTEIN 7.1 G/DL (6.4-8.2); eCRCL 111 ML/MIN; eGFR > 90 ML/MIN
[2024-09-21 10:00] VITALS: BP 125/82; PULSE 88; RESP 15; TEMP 98; O2SAT 99
[2024-09-21 12:03] VITALS: RESP 16
== END 2024-09-21 15:00 | DRG 344 ==
LOC: ER 11:29 → ED HOLD 15:53 → ORTHO 4S 19:57
PROVIDERS: ADMIT Internal Medicine; ATTEND Internal Medicine
DX: E11.69 Type 2 diabetes mellitus with other specified complication (principal); M86.8X7 Other osteomyelitis, ankle and foot; E11.42 Type 2 diabetes mellitus with diabetic polyneuropathy; E11.621 Type 2 diabetes mellitus with foot ulcer; E83.51 Hypocalcemia; S91.301A Unspecified open wound, right foot, initial encounter; L97.516 Non-pressure chronic ulcer of other part of right foot with bone involvement without evidence of necrosis; D50.8 Other iron deficiency anemias; I10 Essential (primary) hypertension; F15.90 Other stimulant use, unspecified, uncomplicated; X58.XXXA Exposure to other specified factors, initial encounter; Y93.89 Activity, other specified; Y99.8 Other external cause status; Y92.89 Other specified places as the place of occurrence of the external cause; Z79.4 Long term (current) use of insulin; Z79.899 Other long term (current) drug therapy; Z59.00 Homelessness unspecified
CPT/HCPCS: 36415; 73630; 73720; 80048; 80053; 80061; 80202; 81001; 82948; 83036; 83605; 83735; 84145; 85025; 85651; 87040; 87070; 87075; 87076; 87077; 87081; 87102; 87186; 93925; 93970; 99285; A6196; A6223; A6253; A6446; A6449; A9575; G0378; J0696; J0744; J1650; J1815; J3370; J3372; J3490; J7030; J7040